=== PATIENT | male | born 1985 | race African-American/Black ===

== ENCOUNTER 2016-05-26 02:49 | Emergency (ER) | payer MEDICAID ==
[~2016-05-26] VITALS: Ht 182.9 cm; Wt 93.4 kg
[2016-05-26 03:17] VITALS: BP 143/91
[2016-05-26] MEDS ORDERED: PENICILLIN G BENZ 1200000 UNITS/2 ML SYRG IM ONE (04:30)
== END 2016-05-26 05:18 | disposition home or self-care (01) ==
LOC: ER 02:50
DX: A53.9 Syphilis, unspecified (principal); Z20.2 Contact with and (suspected) exposure to infections with a predominantly sexual mode of transmission; F17.210 Nicotine dependence, cigarettes, uncomplicated; F12.10 Cannabis abuse, uncomplicated
CPT/HCPCS: 96372; 99284; J0561

== ENCOUNTER 2016-05-27 21:17 | Emergency (ER) | payer MEDICAID ==
[~2016-05-27] VITALS: Ht 182.9 cm; Wt 93.4 kg
[2016-05-27 21:36] VITALS: BP 132/83
[2016-05-27] MEDS ORDERED: PENICILLIN G BENZ 1200000 UNITS/2 ML SYRG IM ONE ×2 (22:45)
== END 2016-05-27 23:56 | disposition home or self-care (01) ==
LOC: ER 21:22
DX: A53.9 Syphilis, unspecified (principal); F17.210 Nicotine dependence, cigarettes, uncomplicated; F12.10 Cannabis abuse, uncomplicated
CPT/HCPCS: 86592; 96372; 99283; J0561

== ENCOUNTER → 2023-09-11 | Emergency (ER) | payer MEDICAID, OTHER ==
[~2023-09-11] VITALS: Ht 182.9 cm; Wt 104.5 kg
[2023-09-11 17:01] VITALS: BP 127/77; PULSE 82; RESP 18; O2SAT 99
== END | disposition left against medical advice (07) ==
LOC: ER 16:29
DX: R05.9 Cough, unspecified (principal); Z53.21 Procedure and treatment not carried out due to patient leaving prior to being seen by health care provider